=== PATIENT | male | born 1950 | race Native Hawaiian/Other Pacific Islander ===

== ENCOUNTER 2021-04-27 21:47 | Emergency (ER) | payer OTHER ==
[~2021-04-27] VITALS: Ht 172.7 cm; Wt 96.2 kg
[2021-04-27 21:47] VITALS: TEMP 99.3
[~2021-04-27 21:47] MED LIST: BENTYL10 MG PO; BETAPACE120 MG PO; CARDURA4 MG; CETIRIZINE10 MG PO; DIGO0.2549; LOFIBRA54 MG PO; LUNESTA3 MG PO; METOPROL TAR25 MG PO; PRANDIN1 MG PO; PRILOSEC20 MG PO; ROSU10TA; TOPROL XL25 MG PO
[2021-04-27 22:25] LABS: PLATELET COUNT 166 K/uL (142-355)
[2021-04-27 22:31] LABS: SODIUM 137 mmol/L (136-145)
[2021-04-27 22:48] LABS: PARTIAL THROMBOPLASTIN TIME 24.9 SECONDS (24.5-33.6)
[2021-04-28 00:25] VITALS: BP 120/69
== END 2021-04-28 00:25 | disposition home or self-care (01) ==
LOC: ED 22:01
PROVIDERS: Family Medicine
DX: E86.0 Dehydration (principal); I95.89 Other hypotension; R10.31 Right lower quadrant pain
CPT/HCPCS: 36415; 80053; 81000; 84484; 85027; 85610; 85730; 93005; 96360; 99284

== ENCOUNTER 2021-04-29 12:18 | Emergency (ER) | payer OTHER ==
[~2021-04-29] VITALS: Ht 172.7 cm; Wt 96.2 kg
[2021-04-29 13:25] LABS: PLATELET COUNT 166 K/uL (142-355)
[2021-04-29 13:28] LABS: POTASSIUM 4.1 mmol/L (3.6-5.2); SODIUM 140 mmol/L (136-145)
[2021-04-29 13:44] LABS: PARTIAL THROMBOPLASTIN TIME 25.4 SECONDS (24.5-33.6)
[2021-04-29 14:00] VITALS: BP 106/58; TEMP 97.8
== END 2021-04-29 14:00 | disposition home or self-care (01) ==
LOC: ED 12:18
PROVIDERS: Hospitalist
DX: R19.7 Diarrhea, unspecified (principal); E86.0 Dehydration; K52.89 Other specified noninfective gastroenteritis and colitis; R10.84 Generalized abdominal pain; Z20.822 Contact with and (suspected) exposure to COVID-19
CPT/HCPCS: 36415; 80053; 80162; 82550; 83880; 84484; 85027; 85610; 85730; 87635; 93005; 96360; 96365; 99284; J3490; U0003

== ENCOUNTER 2021-05-01 18:54 | Emergency (ER) | payer OTHER ==
[~2021-05-01] VITALS: Ht 172.7 cm; Wt 97.1 kg
[2021-05-01 20:44] LABS: PLATELET COUNT 175 K/uL (142-355)
[2021-05-01 20:50] LABS: POTASSIUM 3.5 mmol/L (3.6-5.2)
[2021-05-01 21:40] VITALS: BP 140/88; TEMP 97.9
== END 2021-05-01 21:40 | disposition home or self-care (01) ==
LOC: ED 18:54
PROVIDERS: Family Medicine
DX: R10.84 Generalized abdominal pain (principal); K59.09 Other constipation; K58.8 Other irritable bowel syndrome
CPT/HCPCS: 36415; 80053; 85027; 99283

== ENCOUNTER 2021-05-24 10:56 | Outpatient (CLI) | payer OTHER | END 2021-05-24 22:37 | disposition home or self-care (01) | LOC: RAD 10:56 | PROVIDERS: ATTEND Neurological Surgery | DX: M54.16 Radiculopathy, lumbar region (principal) ==

== ENCOUNTER 2021-05-30 13:24 | Emergency (ER) | payer OTHER ==
[~2021-05-30] VITALS: Ht 172.7 cm; Wt 95.7 kg
[2021-05-30 13:30] VITALS: TEMP 99.1
[2021-05-30 15:10] LABS: PLATELET COUNT 165 K/uL (142-355)
[2021-05-30 15:19] LABS: SODIUM 139 mmol/L (136-145)
[2021-05-30 15:22] LABS: POTASSIUM 4.7 mmol/L (3.6-5.2)
[2021-05-30 15:44] LABS: PARTIAL THROMBOPLASTIN TIME 23.2 SECONDS (24.5-33.6)
[2021-05-30 18:20] VITALS: BP 129/82
== END 2021-05-30 18:20 | disposition home or self-care (01) ==
LOC: ED 13:24
PROVIDERS: Hospitalist
DX: K52.89 Other specified noninfective gastroenteritis and colitis (principal); E86.0 Dehydration; Z20.822 Contact with and (suspected) exposure to COVID-19; Z79.899 Other long term (current) drug therapy; Z51.81 Encounter for therapeutic drug level monitoring
CPT/HCPCS: 80053; 80162; 81000; 82550; 83605; 83880; 84484; 85027; 85610; 85730; 87635; 93005; 96360; 96365; 99284; J0696; U0003

== ENCOUNTER 2021-06-06 09:47 | Outpatient (CLI) | payer OTHER | END 2021-06-06 19:08 | disposition home or self-care (01) | LOC: MRI 09:47 | PROVIDERS: ATTEND Neurological Surgery | DX: M54.16 Radiculopathy, lumbar region (principal) ==

== ENCOUNTER 2021-06-12 14:29 | Outpatient (CLI) | payer OTHER | END 2021-06-12 20:54 | disposition home or self-care (01) | LOC: MRI 14:29 | PROVIDERS: ATTEND Nurse Practitioner Family | DX: G83.11 Monoplegia of lower limb affecting right dominant side (principal) ==

== ENCOUNTER 2021-11-08 17:18 | Outpatient (CLI) | payer OTHER ==
[~2021-11-08 17:18] MED LIST changes: +AMBIEN5 MG PO; +ATOR20TA2 PO; +B-121000 MC4 PO; +BAYER ASPIRIN E81 MG PO; +CYPROHEPTADINE H4 MG PO; +GLIP10TA55 PO; +LISI20TA11 PO; +LORCET HD 10-321 TAB PO; +METF500T PO; +MYRBETRIQ50 MG PO; +NEFAZODONE150 MG PO; +OMEP40CA PO; +ROSUVASTATIN CA40 MG PO; +TAMS0.4C PO; +TRAZODONE HYDR100 MG PO; +VENLAFAXINE HY150 MG PO
[2021-11-08 18:15] LABS: POTASSIUM 4.1 mmol/L (3.6-5.2)
== END 2021-11-08 20:49 | disposition home or self-care (01) ==
LOC: RAD 17:18
PROVIDERS: ATTEND Nurse Practitioner Family
DX: U07.1 COVID-19 (principal)
CPT/HCPCS: 36415; 80053; 82728; 85379; 86140

== ENCOUNTER 2022-01-10 16:31 | Emergency (ER) | payer OTHER ==
[~2022-01-10] VITALS: Ht 172.7 cm; Wt 96.6 kg
[2022-01-10 16:35] VITALS: TEMP 97.6
[2022-01-10 17:08] LABS: PLATELET COUNT 181 K/uL (142-355)
[2022-01-10 17:11] LABS: POTASSIUM 3.5 mmol/L (3.6-5.2)
[2022-01-10 17:52] VITALS: BP 126/64
== END 2022-01-10 17:53 | disposition home or self-care (01) ==
LOC: ED 16:31
PROVIDERS: Emergency Medicine
DX: J06.9 Acute upper respiratory infection, unspecified (principal); J40 Bronchitis, not specified as acute or chronic; R06.2 Wheezing
CPT/HCPCS: 80048; 85027; 94664; 96372; 99283; J0696; J2920

== ENCOUNTER 2022-01-31 14:41 | Outpatient (CLI) | payer OTHER ==
[2022-01-31 15:01] LABS: PLATELET COUNT 150 K/uL (142-355)
[2022-01-31 15:11] LABS: POTASSIUM 4.9 mmol/L (3.6-5.2)
== END 2022-01-31 19:13 | disposition home or self-care (01) ==
LOC: LABW 14:41
PROVIDERS: ATTEND Nurse Practitioner Family
DX: R25.2 Cramp and spasm (principal)
CPT/HCPCS: 36415; 80053; 82550; 83735; 85027

== ENCOUNTER 2022-02-11 11:02 | Outpatient (CLI) | payer OTHER ==
[2022-02-11 11:14] LABS: PLATELET COUNT 190 K/uL (142-355)
[2022-02-11 11:26] LABS: POTASSIUM 5.2 mmol/L (3.6-5.2)
== END 2022-02-11 18:59 | disposition home or self-care (01) ==
LOC: LABW 11:02
PROVIDERS: ATTEND Family Medicine
DX: R25.2 Cramp and spasm (principal)
CPT/HCPCS: 36415; 80053; 83735; 85027

== ENCOUNTER 2022-03-13 11:16 | Outpatient (CLI) | payer OTHER | END 2022-03-13 19:14 | disposition home or self-care (01) | LOC: CT 11:16 | PROVIDERS: ATTEND Family Medicine | DX: Z09 Encounter for follow-up examination after completed treatment for conditions other than malignant neoplasm (principal); Z86.73 Personal history of transient ischemic attack (TIA), and cerebral infarction without residual deficits ==

== ENCOUNTER 2022-04-08 15:22 | Outpatient (CLI) | payer OTHER ==
[2022-04-08 15:50] LABS: PLATELET COUNT 162 K/uL (142-355)
[2022-04-08 15:59] LABS: POTASSIUM 4.7 mmol/L (3.6-5.2)
== END 2022-04-08 19:53 | disposition home or self-care (01) ==
LOC: RAD 15:22 → RESP 15:22
PROVIDERS: ATTEND Nurse Practitioner Family
DX: R07.89 Other chest pain (principal)
CPT/HCPCS: 36415; 80053; 82550; 82553; 83735; 84484; 85027; 85379; 93005

== ENCOUNTER 2022-04-08 15:55 | Emergency (ER) | payer OTHER ==
[~2022-04-08] VITALS: Ht 172.7 cm; Wt 95.3 kg
[2022-04-08 16:10] VITALS: TEMP 99.2
[2022-04-08 18:47] VITALS: BP 124/73
== END 2022-04-08 18:48 | disposition home or self-care (01) ==
LOC: ED 15:55
DX: I25.10 Atherosclerotic heart disease of native coronary artery without angina pectoris (principal); I10 Essential (primary) hypertension
CPT/HCPCS: 84484; 85610; 93005; 99283

== ENCOUNTER 2022-05-13 12:50 | Outpatient (CLI) | payer OTHER ==
[~2022-05-13] VITALS: Ht 172.7 cm; Wt 96.2 kg
[2022-05-13 12:58] VITALS: BP 143/81; TEMP 98.2
--- NOTE | 2022-05-13 14:52 | NUR ---
1258 PT AMBULATED TO ROOM 1128 FOR OP INFUSION VS OBTAINED 24G TO ENE X2 ATTEMPTS. 1348 INFUSION STARTED AT THIS TIME WITH NO COMPLICATIONS 1415 PT TOLERATING INFUSION WITH NO ADVERSE REACTIONS SUSPECTED. PT DENIES ANY COMPLAINTS 1454 REPORT GIVENTO ELISA FRAZIER, RN
--- NOTE | 2022-05-13 15:46 | NUR ---
PATIENT COMPLETED INFUSION V/S 98.1 62 134/69 20 97 PERCENT.TOLERATED WELL AMBULATED OUT TO PRIVATE CAR.CC
== END 2022-05-13 19:01 | disposition home or self-care (01) ==
LOC: INF 12:50
PROVIDERS: ATTEND Family Medicine
DX: D50.8 Other iron deficiency anemias (principal)
CPT/HCPCS: 96365; 96366; J1756

== ENCOUNTER 2022-05-17 08:05 | Outpatient (CLI) | payer OTHER ==
[2022-05-15 08:20] VITALS: BP 141/74; TEMP 98.6
[~2022-05-17] VITALS: Ht 172.7 cm; Wt 95.3 kg
[2022-05-17 08:20] VITALS: BP 149/80; TEMP 98.9
[2022-05-17 12:20] VITALS: BP 156/81; TEMP 97.6
== END 2022-05-17 15:38 | disposition home or self-care (01) ==
LOC: INF 08:05
PROVIDERS: ATTEND Family Medicine
DX: D50.8 Other iron deficiency anemias (principal)
CPT/HCPCS: 96365; J1756

== ENCOUNTER 2022-06-08 13:52 | Emergency (ER) | payer OTHER ==
[~2022-06-08] VITALS: Ht 172.7 cm; Wt 95.3 kg
[2022-06-08 14:24] LABS: PLATELET COUNT 135 K/uL (142-355)
[2022-06-08 14:45] LABS: PARTIAL THROMBOPLASTIN TIME 23.4 SECONDS (24.5-33.6)
[2022-06-08 21:05] VITALS: TEMP 98.9
[2022-06-08 21:30] VITALS: BP 132/67
== END 2022-06-08 21:45 | disposition short-term general hospital (02) ==
LOC: ED 13:52
PROVIDERS: Family Medicine
DX: U07.1 COVID-19 (principal); R09.02 Hypoxemia; R41.82 Altered mental status, unspecified; R10.13 Epigastric pain; Z98.890 Other specified postprocedural states
CPT/HCPCS: 36600; 80053; 81002; 82550; 82805; 83605; 84484; 85027; 85610; 85730; 87040; 87635; 93005; 96374; 96375; 99284; J2405; U0003

== ENCOUNTER 2022-07-30 07:24 | Emergency (ER) | payer OTHER ==
[~2022-07-30] VITALS: Ht 172.7 cm; Wt 95.3 kg
[2022-07-30 08:29] LABS: PLATELET COUNT 133 K/uL (142-355)
[2022-07-30 08:41] LABS: POTASSIUM 3.9 mmol/L (3.6-5.2)
[2022-07-30 09:04] VITALS: TEMP 100.1
[2022-07-30] MEDS ORDERED: TAMIFLU75 MG PO (09:13)
[2022-07-30 09:27] VITALS: BP 154/78
== END 2022-07-30 09:34 | disposition still patient (30) ==
LOC: ED 07:24
PROVIDERS: Emergency Medicine Emergency Medical Services
DX: B34.9 Viral infection, unspecified (principal); J10.1 Influenza due to other identified influenza virus with other respiratory manifestations; E83.42 Hypomagnesemia; I10 Essential (primary) hypertension; E11.9 Type 2 diabetes mellitus without complications; Z79.84 Long term (current) use of oral hypoglycemic drugs; I25.10 Atherosclerotic heart disease of native coronary artery without angina pectoris; Z20.822 Contact with and (suspected) exposure to COVID-19
CPT/HCPCS: 36415; 80053; 83735; 84484; 85027; 87040; 87502; 87635; 87651; 93005; 96360; 99284; U0003

== ENCOUNTER 2022-11-07 10:29 | Outpatient (CLI) | payer OTHER ==
[~2022-11-07 10:29] MED LIST changes: +TAMIFLU75 MG PO
[2022-11-07 11:08] LABS: PLATELET COUNT 188 K/uL (142-355)
[2022-11-07 11:21] LABS: POTASSIUM 4.8 mmol/L (3.6-5.2)
== END 2022-11-07 19:45 | disposition home or self-care (01) ==
LOC: LABW 10:29
PROVIDERS: ATTEND Nurse Practitioner Family
DX: R25.2 Cramp and spasm (principal)
CPT/HCPCS: 36415; 80053; 83735; 85027

== ENCOUNTER 2022-11-08 12:48 | Outpatient (CLI) | payer OTHER ==
[~2022-11-08] VITALS: Ht 172.7 cm; Wt 95.3 kg
[2022-11-08 12:56] VITALS: BP 129/67; TEMP 98.1
[2022-11-08 15:33] VITALS: BP 119/72; TEMP 98.1
== END 2022-11-08 19:31 | disposition home or self-care (01) ==
LOC: INF 12:48
PROVIDERS: ATTEND Family Medicine
DX: E86.0 Dehydration (principal)
CPT/HCPCS: 81002; 96360; 96361

== ENCOUNTER 2022-11-08 15:49 | Emergency (ER) | payer OTHER ==
[~2022-11-08] VITALS: Ht 172.7 cm; Wt 95.3 kg
[2022-11-08 15:50] VITALS: BP 134/79; TEMP 98.2
== END 2022-11-08 19:00 | disposition home or self-care (01) ==
LOC: ED 15:49
PROC: 0HQGXZZ Repair Left Hand Skin, External Approach (ICD-10-PCS; principal; 2022-11-08)
DX: S00.03XA Contusion of scalp, initial encounter (principal); S00.81XA Abrasion of other part of head, initial encounter; S40.811A Abrasion of right upper arm, initial encounter; S61.412A Laceration without foreign body of left hand, initial encounter; W01.198A Fall on same level from slipping, tripping and stumbling with subsequent striking against other object, initial encounter; Y92.89 Other specified places as the place of occurrence of the external cause
CPT/HCPCS: 99283; J7040

== ENCOUNTER 2022-11-11 14:16 | Outpatient (CLI) | payer OTHER | END 2022-11-11 19:06 | disposition home or self-care (01) | LOC: RAD 14:16 | PROVIDERS: ATTEND Nurse Practitioner Family | DX: S20.214D Contusion of middle front wall of thorax, subsequent encounter (principal); Y92.89 Other specified places as the place of occurrence of the external cause ==

== ENCOUNTER 2022-11-25 18:58 | Outpatient (CLI) | payer OTHER ==
[2022-11-25 19:34] LABS: PLATELET COUNT 212 K/uL (142-355)
[2022-11-25 19:41] LABS: POTASSIUM 3.8 mmol/L (3.6-5.2)
== END 2022-11-25 19:12 | disposition home or self-care (01) ==
LOC: LABW 18:58
PROVIDERS: ATTEND Nurse Practitioner Family
DX: R63.4 Abnormal weight loss (principal)
CPT/HCPCS: 36415; 80053; 82533; 85027

== ENCOUNTER 2022-11-26 19:00 | Emergency (ER) | payer OTHER ==
[~2022-11-26] VITALS: Ht 172.7 cm; Wt 92.5 kg
[2022-11-26 21:51] LABS: PLATELET COUNT 200 K/uL (142-355)
[2022-11-26 21:56] LABS: POTASSIUM 3.5 mmol/L (3.6-5.2)
[2022-11-26 23:00] VITALS: BP 131/68; TEMP 98.6
== END 2022-11-26 23:00 | disposition short-term general hospital (02) ==
LOC: ED 19:00
PROVIDERS: Emergency Medicine
DX: R55 Syncope and collapse (principal); S09.8XXA Other specified injuries of head, initial encounter; S02.31XA Fracture of orbital floor, right side, initial encounter for closed fracture; S02.40CA Maxillary fracture, right side, initial encounter for closed fracture; S02.841A Fracture of lateral orbital wall, right side, initial encounter for closed fracture; S06.2X9A Diffuse traumatic brain injury with loss of consciousness of unspecified duration, initial encounter; S00.31XA Abrasion of nose, initial encounter; S40.211A Abrasion of right shoulder, initial encounter; I10 Essential (primary) hypertension; W01.198A Fall on same level from slipping, tripping and stumbling with subsequent striking against other object, initial encounter; Y92.098 Other place in other non-institutional residence as the place of occurrence of the external cause
CPT/HCPCS: 80053; 85027; 93005; 96374; 96375; 99285; J2270; J2405

== ENCOUNTER 2022-12-02 17:37 | Inpatient (IN) | payer OTHER | END 2022-12-10 09:24 | disposition home or self-care (01) | LOC: PAVC 17:37 | PROVIDERS: ADMIT Family Medicine; ATTEND Family Medicine | DX: I61.5 Nontraumatic intracerebral hemorrhage, intraventricular (principal); M62.81 Muscle weakness (generalized); R26.81 Unsteadiness on feet; R26.2 Difficulty in walking, not elsewhere classified; Z74.1 Need for assistance with personal care; S02.8 Fractures of other specified skull and facial bones; S02.40CD Maxillary fracture, right side, subsequent encounter for fracture with routine healing | CPT/HCPCS: 87081 ==

== ENCOUNTER 2022-12-19 14:12 | Outpatient (CLI) | payer OTHER ==
[~2022-12-19] VITALS: Ht 170.2 cm; Wt 92.5 kg
[2022-12-19 14:30] VITALS: BP 143/75; TEMP 97.8
[2022-12-19 17:15] VITALS: BP 126/82; TEMP 98.2
== END 2022-12-19 17:00 | disposition home or self-care (01) ==
LOC: INF 14:12
PROVIDERS: ATTEND Family Medicine
DX: D50.9 Iron deficiency anemia, unspecified (principal)
CPT/HCPCS: 96365; J1756

== ENCOUNTER 2022-12-20 12:34 | Outpatient (CLI) | payer OTHER ==
[~2022-12-20] VITALS: Ht 172.7 cm; Wt 86.4 kg
[2022-12-20 12:42] VITALS: BP 123/69; TEMP 98
[2022-12-20 14:43] VITALS: BP 120/73; TEMP 98.2
== END 2022-12-20 19:34 | disposition home or self-care (01) ==
LOC: INF 12:34
PROVIDERS: ATTEND Family Medicine
DX: D50.9 Iron deficiency anemia, unspecified (principal)
CPT/HCPCS: 96365; J1756

== ENCOUNTER 2023-01-06 17:32 | Observation (INO) | payer OTHER ==
[~2023-01-06] VITALS: Ht 172.7 cm; Wt 91.8 kg
[2023-01-06 17:40] VITALS: BP 99/64; TEMP 98.8
[2023-01-06 18:00] VITALS: BP 100/62
[2023-01-06 18:36] LABS: PLATELET COUNT 176 K/uL (142-355)
[2023-01-06 19:00] VITALS: BP 115/71
[2023-01-06 20:00] VITALS: BP 109/64
[2023-01-06 21:00] VITALS: BP 144/90
[2023-01-06 22:49] VITALS: BP 133/80; TEMP 98.1; Ht 172.7 cm; Wt 91.8 kg
[2023-01-07] VITALS (8 sets, daily range): BP systolic 97–133; BP diastolic 57–80; TEMP 97.6–98.7
[2023-01-07 06:56] LABS: PLATELET COUNT 140 K/uL (142-355)
[2023-01-07 07:07] LABS: POTASSIUM 3.7 mmol/L (3.6-5.2)
[2023-01-07] MEDS ORDERED: BUTRANS20 MCG/HR TOP (11:02)
[2023-01-07] MEDS ORDERED: LINZESS72 MCG PO (11:03)
[2023-01-07] MEDS ORDERED: ONDANSETRON4 M2 PO (11:04)
[2023-01-07] MEDS ORDERED: MIRTAZAPINE PO (11:04)
[2023-01-07] MEDS ORDERED: LEVE500T5 PO (11:05)
[2023-01-07] MEDS ORDERED: BUPROPION HYDR150 M3 PO (11:06)
[2023-01-07] MEDS ORDERED: CARB25TA29 PO (11:07)
[2023-01-07] MEDS ORDERED: B-121000 MCG PO (11:08)
[2023-01-07] MEDS ORDERED: GLIP10TA55 PO (11:09)
[2023-01-07] MEDS ORDERED: DOK100 MG PO (11:09)
[2023-01-07] MEDS ORDERED: XARELTO20 MG PO (11:10)
[2023-01-07] MEDS ORDERED: LISI10TA11 PO (11:11)
[2023-01-07] MEDS ORDERED: MYRBETRIQ50 MG PO (11:11)
[2023-01-07] MEDS ORDERED: NITR0.4S2 SL (11:13)
[2023-01-07] MEDS ORDERED: OMEPRAZOLE DR40 MG PO (11:13)
[2023-01-07] MEDS ORDERED: CRESTOR20 MG PO (11:14)
[2023-01-07] MEDS ORDERED: OXYC5TAB24 PO (11:14)
[2023-01-07] MEDS ORDERED: TRAZ50TA36 PO (11:15)
[2023-01-07] MEDS ORDERED: VITAMIN D32000 UNI1 PO (11:16)
[2023-01-08 03:40] VITALS: BP 102/62; TEMP 98.2
[2023-01-08 08:00] VITALS: BP 116/61; TEMP 97.8
== END 2023-01-08 11:07 | disposition home or self-care (01) ==
LOC: ED 17:32 → MED/SURG 22:00
PROVIDERS: ADMIT Emergency Medicine Emergency Medical Services; ATTEND Internal Medicine
DX: R53.1 Weakness (principal); R26.89 Other abnormalities of gait and mobility; R53.81 Other malaise; I10 Essential (primary) hypertension; G20 Parkinson's disease; G89.4 Chronic pain syndrome; I48.91 Unspecified atrial fibrillation; Z79.01 Long term (current) use of anticoagulants; Z86.79 Personal history of other diseases of the circulatory system; E11.65 Type 2 diabetes mellitus with hyperglycemia; Z91.81 History of falling
CPT/HCPCS: 36415; 51798; 80053; 81002; 82948; 83735; 84443; 84484; 85027; 93005; 96360; 96361; 96365; 99221; 99284; G0378

== ENCOUNTER 2023-01-31 11:20 | Outpatient (CLI) | payer OTHER ==
[~2023-01-31 11:20] MED LIST changes: +B-121000 MCG PO; +BUPROPION HYDR150 M3 PO; +BUTRANS20 MCG/HR TOP; +CARB25TA29 PO; +CRESTOR20 MG PO; +DOK100 MG PO; +LEVE500T5 PO; +LINZESS72 MCG PO; +LISI10TA11 PO; +MIRTAZAPINE PO; +NITR0.4S2 SL; +OMEPRAZOLE DR40 MG PO; +ONDANSETRON4 M2 PO; +OXYC5TAB24 PO; +TRAZ50TA36 PO; +VITAMIN D32000 UNI1 PO; +XARELTO20 MG PO
[2023-01-31 11:44] LABS: PLATELET COUNT 174 K/uL (142-355)
[2023-01-31 12:10] LABS: POTASSIUM 4.4 mmol/L (3.6-5.2)
== END 2023-01-31 19:16 | disposition home or self-care (01) ==
LOC: LABW 11:20
PROVIDERS: ATTEND Internal Medicine Endocrinology, Diabetes & Metabolism
DX: E11.21 Type 2 diabetes mellitus with diabetic nephropathy (principal); K21.9 Gastro-esophageal reflux disease without esophagitis; R25.1 Tremor, unspecified; G47.00 Insomnia, unspecified; I48.91 Unspecified atrial fibrillation; F32.9 Major depressive disorder, single episode, unspecified; K59.00 Constipation, unspecified; N32.81 Overactive bladder; G89.4 Chronic pain syndrome; D50.8 Other iron deficiency anemias; N18.2 Chronic kidney disease, stage 2 (mild); E78.2 Mixed hyperlipidemia; Z79.899 Other long term (current) drug therapy; I12.9 Hypertensive chronic kidney disease with stage 1 through stage 4 chronic kidney disease, or unspecified chronic kidney disease
CPT/HCPCS: 36415; 80048; 80061; 82728; 83036; 83540; 83550; 84439; 84443; 85027

== ENCOUNTER 2023-03-14 12:45 | Outpatient (CLI) | payer OTHER | END 2023-03-14 19:02 | disposition home or self-care (01) | LOC: MRI 12:45 | PROVIDERS: ATTEND Internal Medicine Endocrinology, Diabetes & Metabolism | DX: R29.898 Other symptoms and signs involving the musculoskeletal system (principal); R25.1 Tremor, unspecified; R41.3 Other amnesia; Z86.73 Personal history of transient ischemic attack (TIA), and cerebral infarction without residual deficits; M25.511 Pain in right shoulder; Z09 Encounter for follow-up examination after completed treatment for conditions other than malignant neoplasm | CPT/HCPCS: A9576 ==

== ENCOUNTER 2023-03-17 13:02 | Outpatient (CLI) | payer OTHER ==
[2023-03-17 13:53] LABS: PLATELET COUNT 179 K/uL (142-355)
[2023-03-17 14:42] LABS: POTASSIUM 4.2 mmol/L (3.6-5.2)
== END 2023-03-17 19:26 | disposition home or self-care (01) ==
LOC: MRI 13:02 → LABW 13:02
PROVIDERS: ATTEND Internal Medicine Endocrinology, Diabetes & Metabolism
DX: R29.898 Other symptoms and signs involving the musculoskeletal system (principal); R25.1 Tremor, unspecified; R41.3 Other amnesia; Z86.73 Personal history of transient ischemic attack (TIA), and cerebral infarction without residual deficits; M25.511 Pain in right shoulder; Z09 Encounter for follow-up examination after completed treatment for conditions other than malignant neoplasm; R93.0 Abnormal findings on diagnostic imaging of skull and head, not elsewhere classified
CPT/HCPCS: 36415; 80053; 82728; 83540; 83550; 85027

== ENCOUNTER 2023-06-26 11:12 | Observation (INO) | payer OTHER ==
[~2023-06-26] VITALS: Ht 172.7 cm; Wt 94.5 kg
[2023-06-26] VITALS (13 sets, daily range): BP systolic 109–153; BP diastolic 57–98; TEMP 97.4–98.7; Ht 172.7 cm; Wt 94.5 kg
[2023-06-26 11:40] LABS: PLATELET COUNT 179 K/uL (142-355)
[2023-06-26] MEDS ORDERED: TRAZ100T PO (20:40)
[2023-06-26] MEDS ORDERED: LISI20TA11 PO (20:41)
[2023-06-26] MEDS ORDERED: MYRBETRIQ50 MG PO (20:46)
[2023-06-26] MEDS ORDERED: OXYCODONE HYDRO10 MG PO (20:50)
[2023-06-26] MEDS ORDERED: VITAMIN D325 MCG PO (20:51)
[2023-06-26] MEDS ORDERED: LINZESS145 MCG PO (20:52)
[2023-06-26] MEDS ORDERED: NEURONTIN800 MG PO (20:54)
[2023-06-26] MEDS ORDERED: REMERON SOLTAB15 MG PO (20:55)
[2023-06-26] MEDS ORDERED: PRIM50TA4 PO (20:56)
[2023-06-26] MEDS ORDERED: NEFAZODONE PO (20:57)
[2023-06-26] MEDS ORDERED: BELBUCA150 MCG BU (20:58)
[2023-06-27] VITALS: BP 130/75; TEMP 98.7
[2023-06-27 03:12] VITALS: BP 135/75; TEMP 97.7
[2023-06-27 04:00] VITALS: BP 135/75; TEMP 97.7
[2023-06-27 05:45] LABS: PLATELET COUNT 163 K/uL (142-355)
[2023-06-27 06:02] LABS: POTASSIUM 4.1 mmol/L (3.6-5.2)
[2023-06-27 07:50] VITALS: BP 127/79; TEMP 98.4
[2023-06-27 12:00] VITALS: BP 132/79; TEMP 98.4
== END 2023-06-27 15:26 | disposition home or self-care (01) ==
LOC: ED 11:12 → MED/SURG 14:25
PROVIDERS: ADMIT Nurse Practitioner Family; ATTEND Family Medicine
DX: J44.1 Chronic obstructive pulmonary disease with (acute) exacerbation (principal); E11.65 Type 2 diabetes mellitus with hyperglycemia; I10 Essential (primary) hypertension; M19.90 Unspecified osteoarthritis, unspecified site; G62.9 Polyneuropathy, unspecified; K21.9 Gastro-esophageal reflux disease without esophagitis; R06.02 Shortness of breath; R41.0 Disorientation, unspecified
CPT/HCPCS: 36415; 80053; 80061; 82947; 82948; 83880; 84484; 85027; 85379; 87635; 93005; 94664; 94760; 96372; 96374; 96375; 99221; 99284; G0378; J1815; J2930; Q9963; U0003

== ENCOUNTER 2023-11-25 11:18 | Outpatient (CLI) | payer OTHER ==
[~2023-11-25 11:18] MED LIST changes: +BELBUCA150 MCG BU; +LINZESS145 MCG PO; +NEFAZODONE PO; +NEURONTIN800 MG PO; +OXYCODONE HYDRO10 MG PO; +PRIM50TA4 PO; +REMERON SOLTAB15 MG PO; +TRAZ100T PO; +VITAMIN D325 MCG PO
[2023-11-25 11:31] LABS: PLATELET COUNT 153 K/uL (142-355)
[2023-11-25 11:43] LABS: POTASSIUM 3.8 mmol/L (3.6-5.2)
== END 2023-11-25 19:08 | disposition home or self-care (01) ==
LOC: LAB 11:18
PROVIDERS: ATTEND Internal Medicine
DX: E11.9 Type 2 diabetes mellitus without complications (principal)
CPT/HCPCS: 36415; 80053; 80061; 83036; 85027; 87081

== ENCOUNTER 2023-11-28 13:36 | Outpatient (CLI) | payer OTHER ==
[~2023-11-28] VITALS: Ht 165.1 cm; Wt 72.6 kg
[2023-11-28] MEDS ORDERED: IRON SUCROSE IV ONE (14:30)
[2023-11-28] MEDS ORDERED: SODIUM CHLORIDE 0.9% IV ONE (14:30)
== END 2023-11-28 23:02 | disposition home or self-care (01) ==
LOC: INF 13:36
PROVIDERS: ATTEND Internal Medicine
DX: D50.8 Other iron deficiency anemias (principal)
CPT/HCPCS: 96365; 96366; J1756

== ENCOUNTER 2023-12-01 13:33 | Outpatient (CLI) | payer OTHER ==
[~2023-12-01] VITALS: Ht 165.1 cm; Wt 72.6 kg
[2023-12-01] MEDS ORDERED: IRON SUCROSE IV SCH (14:00)
[2023-12-01] MEDS ORDERED: SODIUM CHLORIDE 0.9% IV SCH (14:00)
== END 2023-12-01 22:22 | disposition home or self-care (01) ==
LOC: INF 13:33
PROVIDERS: ATTEND Internal Medicine
DX: D50.8 Other iron deficiency anemias (principal)
CPT/HCPCS: 96365; 96366